=== PATIENT | female | born 1990 | race African-American/Black ===

== ENCOUNTER 2020-04-10 18:37 | Emergency (ER) | payer OTHER ==
[~2020-04-10] VITALS: Ht 177.8 cm; Wt 79.9 kg
[2020-04-10] MEDS ORDERED: PENICILLIN V P500 MG PO (19:49)
[2020-04-10] MEDS ORDERED: IBUPROFEN400 MG PO (19:50)
== END 2020-04-10 20:02 | disposition home or self-care (01) ==
LOC: FSED 19:33
DX: O26.891 Other specified pregnancy related conditions, first trimester (principal); K04.7 Periapical abscess without sinus; K08.89 Other specified disorders of teeth and supporting structures
CPT/HCPCS: 99282